=== PATIENT | male | born 1965 | race Caucasian/White ===

== ENCOUNTER 2024-04-26 09:58 | Emergency (ER) | payer BC, SELFPAY ==
[2024-04-26 09:58] VITALS: BP 158/79; PULSE 85; RESP 16; TEMP 36.7; O2SAT 100; BMI 27.8
[2024-04-26 10:00] VITALS: BP 166/82; PULSE 85; O2SAT 100
--- NOTE | 2024-04-26 10:18 | ED_ITS ---
Discharge Plan Disposition Patient Disposition: Home, Self-Care Condition: Good Prescriptions Prescriptions: New acetaminophen 500 mg capsule 1,000 mg PO Q6H PRN (Reason: pain) Qty: 30 0RF ibuprofen 600 mg tablet 600 mg PO Q8H PRN (Reason: pain) Qty: 30 0RF lidocaine 5 % adhesive patch,medicated 1 patch topical DAILY Qty: 15 0RF Rx Instructions: leave on most painful area for up to 12 hrs Referrals Follow up/Referrals: Sin Ferguson APRN [Primary Care Provider] - See instructions Clinical Impressions Clinical Impression: Fall Instructions Patient Instructions: How to Prevent Falls Print Language Print Language: Ukrainian Discharge ED Provider: Julianna Mcgowan General Adult HPI General Chief complaint: Fall Stated complaint: Fall Time Seen by Provider: 04/26/24 10:03 Mode of Arrival: EMS Source of Information: Patient Limitations: No Limitations Description of Symptoms (Recalled from ER Triage Doc. by RN): Patient reports falling down two concrete steps. Complaint of buttocks pain. Denies LOC. History of Present Illness HPI narrative: Patient is a 59-year-old with past medical history significant for type 2 diabetes presents to the emergency department from [facility], [place] due to concern of a fall from 2 steps. Patient complaining most of lower back pain. Patient reports he hit his head did not lose consciousness. Denies taking any medications daily. Patient said he slipped and that is what made him fall denies shortness of breath headache dizziness or lightheadedness prior to the fall. Patient was able to ambulate after the fall. He normally ambulates without difficulty he said when he was walking outside he was attempting to go to the bathroom and urinated on himself. No history of seizures no episode of loss of consciousness and remembers the entire event. Related Data Previous Rx's ?Medication ?Instructions ?Recorded acetaminophen 500 mg capsule 1,000 mg (2 x 500 mg) PO Q6H PRN 04/26/24 pain #30 caps ibuprofen 600 mg tablet 600 mg PO Q8H PRN pain #30 tabs 04/26/24 lidocaine 5 % topical patch 1 patch topical DAILY #15 ea 04/26/24 Allergies Allergy/AdvReac Type Severity Reaction Status Date / Time No Known Allergies Allergy Verified 04/26/24 10:04 [facility] Disclaimer: The information contained in this section may have been updated after the patient was seen, as this information can be updated by other users. Social History Smoking Status: Current every day smoker alcohol intake: never current occupational status: unemployed ROS Obtained: Yes All systems reviewed & no additional complaints except as documented Physical Exam General General appearance: alert and in no apparent distress Comment: Delayed and slowed responses Head Head exam: atraumatic and normocephalic Neck Neck exam: Present full ROM and tenderness (Paraspinal tenderness) Chest Chest inspection: Present normal inspection and tenderness (Right anterior chest without associated bruising) Respiratory Respiratory exam: Present normal lung sounds bilaterally; Absent respiratory distress Cardiovascular Cardiovascular exam: Present regular rate and normal rhythm Abdominal Exam Abdominal exam: Present soft, distention and tenderness (Periumbilical without guarding no associated bruising) Extremities Exam Extremities exam: Present normal inspection, full ROM and tenderness (Right knee without associated edema swelling or bruising) Back Exam Back exam: Present tenderness (Midline tenderness T and L-spine) Neurological Exam Neurological exam: Present alert, oriented X3 and CN II-XII intact; Absent motor sensory deficit Psychiatric Psychiatric exam: Present flat affect and other (Delayed responses) Skin Skin exam: Present warm and dry Medical Decision Making Medical Records Screening: Per USPSTF and CDC recommendations, given the prevalence of disease in our region, it is our hospital?s policy to screen for HIV and viral Hepatitis for all patients aged 18 and over and those with ongoing risk factors. Ramon Inquiry Pt receiving controlled substance: No Vital Signs: 04/26/24 09:58 04/26/24 10:00 04/26/24 10:29 Temperature 98.0 F Temperature Source Oral Pulse Rate 85 82 Pulse Rate [Radial] 85 Respiratory Rate 16 Blood Pressure 166/82 H 144/89 H Blood Pressure [Right Arm] 158/79 H Blood Pressure Mean [Right Arm] 105 Blood Pressure Source Blood Pressure Source [Right Arm] Automatic Cuff Blood Pressure Position [Right Arm] Sitting 02 Sat by Pulse Oximetry 100 100 98 Oxygen Delivery Method Room Air Room Air Room Air 04/26/24 13:00 04/26/24 13:36 Temperature 98.0 F Temperature Source Oral Pulse Rate 78 88 Pulse Rate [Radial] Respiratory Rate 18 Blood Pressure 135/72 146/92 H Blood Pressure [Right Arm] Blood Pressure Mean [Right Arm] Blood Pressure Source Automatic Cuff Blood Pressure Source [Right Arm] Blood Pressure Position [Right Arm] 02 Sat by Pulse Oximetry 100 Oxygen Delivery Method Room Air Room Air Lab Data Lab Results 04/26/24 10:36: WBC 13.5 H, RBC 5.05, Hgb 15.1, Hct 46.0, MCV 91.1, MCH 30.0, MCHC 32.9, RDW 13.3, Plt Count 263, MPV 8.7, Neut % (Auto) 82.9 H, Lymph % (Auto) 10.6, [place] % (Auto) 4.1, Eos % (Auto) 1.6, Baso % (Auto) 0.7, Neut # (Auto) 11.2 H, Lymph # (Auto) 1.4, [place] # (Auto) 0.6, Eos # (Auto) 0.2, Baso # (Auto) 0.1, PT 10.9, INR 0.97, APTT 26.9, Sodium 140, Potassium 4.1, Chloride 104, Carbon Dioxide 29, Anion Gap 11.1, BUN 16, Creatinine 0.90, Estimated Creat Clear 113, Estimated GFR 86, Est GFR ( Amer) 105, Glucose 150 H, Calcium 8.9, Total Bilirubin 0.7, AST 44, ALT 34, Alkaline Phosphatase 101, Total Protein 8.8 H, Albumin 4.5, Globulin 4.3 H, Albumin/Globulin Ratio 1.0 L, Lipase 80, Plasma/Serum Alcohol < 10, HIV 1&2 Antibody Rapid Nonreactive 04/26/24 12:52: Urine Opiates Screen Negative, Urine Methadone Screen Negative, Ur Barbituates Screen Negative, Ur Phencyclidine Scrn Negative, Ur Amphetamines Screen Negative, U Benzodiazepines Scrn Negative, Urine Cocaine Screen Negative, U Marijuana (THC) Screen Negative 04/26/24 10:36 04/26/24 10:36 Orders (Tests/Meds): ED MEDICATIONS Discontinued Medications Generic Name Dose Route Start Last Admin Trade Name Freq PRN Reason Stop Dose Admin Iopamidol 160 ml 04/26/24 12:00 04/26/24 12:01 Iopamidol-370 (76%);100ml Bottle IV 04/26/24 12:01 160 ml ONCE ONE Administration Ketorolac Tromethamine 15 mg 04/26/24 13:33 04/26/24 13:38 Ketorolac 30mg/Ml Vial IV 04/26/24 13:34 15 mg ONCE ONE Administration Sodium Chloride 10 ml 04/26/24 10:23 Sodium Chloride 0.9% 10ml Flush Syringe IV 05/26/24 10:22 NEEDED PRN Maintain IV Site Sodium Chloride 10 ml 04/26/24 12:00 04/26/24 12:01 Sodium Chloride 0.9% 10ml Syr (Rad Only) IV 04/26/24 12:01 10 ml ONCE ONE Administration Sodium Chloride 50 ml 04/26/24 12:00 04/26/24 12:00 0.9 % Sodium Chloride 50 Ml Vial IV 04/26/24 12:01 50 ml ONCE ONE Administration ORDERS Category Date Time Status CT angio abdomen pelvis Stat Cat Scan 04/26/24 10:[address] angio chest - dissection Stat Cat Scan 04/26/24 10:[address] angio head Stat Cat Scan 04/26/24 10:[address] angio neck Stat Cat Scan 04/26/24 10:[address] bony pelvis Stat Cat Scan 04/26/24 10:[address] cervical spine wo con Stat Cat Scan 04/26/24 10:[address] head/brain wo con Stat Cat Scan 04/26/24 10:[address] lumbar spine wo con Stat Cat Scan 04/26/24 10:[address] thoracic spine wo con Stat Cat Scan 04/26/24 10:23 Completed Femur XR right 2 views [XR femur RT 2V] Stat Exams 04/26/24 10:23 Completed Fibula/tibia XR right 2 views [XR tibia fibula RT 2V] Exams 04/26/24 10:23 Completed Stat XR chest portable Stat Exams 04/26/24 10:24 Completed XR knee RT 2V Stat Exams 04/26/24 10:23 Completed XR pelvis 1-2V Stat Exams 04/26/24 10:24 Completed Activated Partial Thrombo Time Stat Lab 04/26/24 10:36 Completed Complete Blood Count Auto Diff Stat Lab 04/26/24 10:36 Completed Comprehensive Metabolic Panel Stat Lab 04/26/24 10:36 Completed Drug Screen,Urine Stat Lab 04/26/24 12:52 Completed Ethyl Alcohol Stat Lab 04/26/24 10:36 Completed HIV (1&2) Antibody Rapid Stat Lab 04/26/24 10:36 Completed Hep C Ab with Reflex to RNA Stat Lab 04/26/24 10:36 Received Lipase Stat Lab 04/26/24 10:36 Completed Prothrombin Time INR Stat Lab 04/26/24 10:36 Completed Medical Decision Narrative: In summary, this 59-year-old female presents to the emergency department today with fall from 2 steps. On initial evaluation patient is hemodynamically stable saturating appropriately on room air afebrile no acute distress. Unknown baseline mental status however patient appears either intoxicated or mentally delayed. Patient covered in urine. differential diagnosis includes but is not limited to intracranial hemorrhage traumatic brain injury spinal fracture intra- abdominal injury including solid organ or hollow viscus injury acute intoxication acute fracture dislocation of extremity. Based on these concerns, I ordered CBC CMP lipase drug screen alcohol level CT head and C-spine without contrast and CT pelvis without contrast, CTA chest abdomen pelvis. Labs personally reviewed demonstrate hemoglobin appropriate. XR personally interpreted demonstrates no pneumo or hemothorax no acute fracture of the right lower extremity., CT imaging personally interpreted demonstrate no acute fracture vertebrae no intra cranial hemorrhage, no hemoperitoneum. I had an interactive discussion with patient's assisted living facility and noted that this is patient's baseline mental status history significant for intellectual disability. On reevaluation patient able to tolerate p.o. and ambulate has improvement of symptoms amenable to discharge with outpatient follow-up. On reassessment patient has improvement of symptoms able to tolerate p.o. workup unremarkable for acute fractures or acute traumatic injuries. Of note, social determinants of health include social barriers affecting quality of life Critical Care Critical Care Time Critical Care Time: No
--- NOTE | 2024-04-26 10:23 | CT_ITS ---
PROCEDURE INFORMATION: Exam: CTA Chest With Contrast Exam date and time: 04/26/2024 12:04 PM Age: 59 years old Clinical indication: Injury or trauma; Additional info: Trauma, critical injury suspected TECHNIQUE: Imaging protocol: Computed tomographic angiography of the chest with contrast. Exam focused on the arteries. 3D rendering (Not supervised by radiologist): MIP and/or 3D reconstructed images were created by the technologist. Radiation optimization: All CT scans at this facility use at least one of these dose optimization techniques: automated exposure control; mA and/or kV adjustment per patient size (includes targeted exams where dose is matched to clinical indication); or iterative reconstruction. Contrast material: ISOVUE 370; Contrast volume: 160 ml; Contrast route: INTRAVENOUS (IV); COMPARISON: CT ANGIO NECK 04/26/2024 11:59 AM FINDINGS: Pulmonary arteries: Normal. No pulmonary emboli. Aorta: Unremarkable. No aortic aneurysm. No aortic dissection. Lungs: There is an old calcified granuloma in the superior segment of the right lower lobe. No acute pulmonary infiltrates. Pleural spaces: Unremarkable. No pneumothorax. No pleural effusion. Heart: Unremarkable. No cardiomegaly. No pericardial effusion. Lymph nodes: Unremarkable. No enlarged lymph nodes. Bones/joints: Unremarkable. No acute fracture. Soft tissues: Unremarkable. IMPRESSION: Unremarkable CT angiogram of the chest.
--- NOTE | 2024-04-26 10:23 | XR_ITS ---
PROCEDURE INFORMATION: Exam: XR Right Femur Exam date and time: 04/26/2024 12:11 PM Age: 59 years old Clinical indication: Injury or trauma; Fall; Blunt trauma; Thigh or upper leg; Right; Additional info: Fall, pain TECHNIQUE: Imaging protocol: Radiologic exam of the right femur. Views: 2 views. COMPARISON: CR Pelvis 04/26/2024 12:09 PM FINDINGS: Bones/joints: There is normal anatomic alignment of the right femur at the hip and knee. There are moderate chronic degenerative changes of the right hip. No evidence of a right femur fracture. There are mild chronic degenerative changes of the right knee. Soft tissues: Unremarkable. IMPRESSION: Chronic degenerative changes of the right hip and knee but no evidence of a right femur fracture.
--- NOTE | 2024-04-26 10:23 | CT_ITS ---
PROCEDURE INFORMATION: Exam: CT Cervical Spine Without Contrast Exam date and time: 04/26/2024 11:48 AM Age: 59 years old Clinical indication: Injury or trauma; Additional info: Trauma, critical injury suspected TECHNIQUE: Imaging protocol: Computed tomography of the cervical spine without contrast. Radiation optimization: All CT scans at this facility use at least one of these dose optimization techniques: automated exposure control; mA and/or kV adjustment per patient size (includes targeted exams where dose is matched to clinical indication); or iterative reconstruction. COMPARISON: CT HEAD/BRAIN WO CON 04/26/2024 11:46 AM FINDINGS: Bones: Vertebral alignment is maintained. There is preservation of vertebral body heights. Facet joints are well aligned. Odontoid process is intact. Atlantoaxial interval is maintained. No acute fracture. No osseous encroachment of the spinal canal. Uncovertebral facet arthropathy contribute to varying degrees of neural foramina narrowing at multiple levels. Anterior flowing osteophytes at all cervical levels. Paranasal sinuses: Scattered mucosal thickening throughout the paranasal sinuses. Auditory system: Nodular soft tissue thickening in bilateral external auditory canals. While nonspecific statistically represent cerumen. Lungs: Lung apices are normal. Soft tissues: Prevertebral and paravertebral soft tissues are unremarkable. IMPRESSION: No acute fracture. No traumatic subluxation.
--- NOTE | 2024-04-26 10:23 | CT_ITS ---
PROCEDURE INFORMATION: Exam: CT Head Without Contrast Exam date and time: 04/26/2024 11:46 AM Age: 59 years old Clinical indication: Injury or trauma; Additional info: Trauma, critical injury suspected TECHNIQUE: Imaging protocol: Computed tomography of the head without contrast. Radiation optimization: All CT scans at this facility use at least one of these dose optimization techniques: automated exposure control; mA and/or kV adjustment per patient size (includes targeted exams where dose is matched to clinical indication); or iterative reconstruction. COMPARISON: No relevant prior studies available. FINDINGS: Brain: There is no evidence of acute intracranial hemorrhage, extra-axial collection or locoregional mass effect. There are scattered hypodensities in the periventricular and subcortical white matter. The appearance is nonspecific, but most likely represents chronic small vessel disease in a person of this age Cerebral ventricles: The ventricles, sulci and cisterns are normal in size and configuration for patient's age. No hydrocephalus or midline structure shift Pituitary gland and sella: Sellar/parasellar structures, craniocervical junction and orbits are unremarkable Paranasal sinuses: Scattered mucosal thickening throughout the paranasal sinuses. Mastoid air cells: Visualized mastoid air cells are well aerated. Bones: No calvarial fracture Soft tissues: Unremarkable. IMPRESSION: No acute intracranial abnormality. No calvarial fracture.
--- NOTE | 2024-04-26 10:23 | CT_ITS ---
PROCEDURE INFORMATION: Exam: CT Thoracic Spine Without Contrast Exam date and time: 04/26/2024 11:50 AM Age: 59 years old Clinical indication: Injury or trauma; Additional info: Trauma, critical injury suspected TECHNIQUE: Imaging protocol: Computed tomography of the thoracic spine without contrast. Radiation optimization: All CT scans at this facility use at least one of these dose optimization techniques: automated exposure control; mA and/or kV adjustment per patient size (includes targeted exams where dose is matched to clinical indication); or iterative reconstruction. COMPARISON: CT THORACIC SPINE WO CON 04/26/2024 11:50 AM FINDINGS: Bones/joints: There is preservation of vertebral alignment and vertebral body heights. Facet joints are aligned. No acute fracture. There is no significant osseous encroachment of the spinal canal or neural foraminal narrowing at any level. Soft tissues: Unremarkable. IMPRESSION: No acute fracture. No traumatic subluxation.
--- NOTE | 2024-04-26 10:23 | CT_ITS ---
PROCEDURE INFORMATION: Exam: CT Lumbar Spine Without Contrast Exam date and time: 04/26/2024 11:53 AM Age: 59 years old Clinical indication: Injury or trauma; Additional info: Trauma, critical injury suspected TECHNIQUE: Imaging protocol: Computed tomography of the lumbar spine without contrast. Radiation optimization: All CT scans at this facility use at least one of these dose optimization techniques: automated exposure control; mA and/or kV adjustment per patient size (includes targeted exams where dose is matched to clinical indication); or iterative reconstruction. COMPARISON: CT THORACIC SPINE WO CON 04/26/2024 11:50 AM FINDINGS: Bones/joints: There is preservation of vertebral alignment and vertebral body heights. Facet joints are aligned. No acute fracture. No significant central spinal canal stenosis or neural foraminal narrowing at any level. Anterior flowing osteophytes noted. Sacroiliac joints are intact. Kidneys and ureters: Bilateral nonobstructive nephrolithiasis. Soft tissues: Unremarkable. IMPRESSION: No acute fracture. No traumatic subluxation.
--- NOTE | 2024-04-26 10:23 | CT_ITS ---
PROCEDURE INFORMATION: Exam: CTA Abdomen and Pelvis With Contrast Exam date and time: 04/26/2024 12:04 PM Age: 59 years old Clinical indication: Injury or trauma; Additional info: Trauma, critical injury suspected TECHNIQUE: Imaging protocol: Computed tomographic angiography of the abdomen and pelvis with contrast. Exam focused on the arteries. 3D rendering (Not supervised by radiologist): MIP and/or 3D reconstructed images were created by the technologist. Radiation optimization: All CT scans at this facility use at least one of these dose optimization techniques: automated exposure control; mA and/or kV adjustment per patient size (includes targeted exams where dose is matched to clinical indication); or iterative reconstruction. Contrast material: ISOVUE 370; Contrast volume: 160 ml; Contrast route: INTRAVENOUS (IV); COMPARISON: CT BONY PELVIS 04/26/2024 11:56 AM FINDINGS: Aorta: No aortic aneurysm. No aortic dissection. Celiac trunk and mesenteric arteries: No occlusion or significant stenosis. Renal arteries: No occlusion or significant stenosis. Right iliac arteries: No occlusion or significant stenosis. Left iliac arteries: No occlusion or significant stenosis. Liver: Hepatic steatosis. No focal liver lesion is identified. Gallbladder and biliary ducts: The gallbladder is unremarkable with no calcified stones visualized and no strandy inflammatory changes surrounding the gallbladder. Pancreas: Unremarkable. No mass. No ductal dilation. Spleen: Unremarkable. No splenomegaly. Adrenal glands: Adreniform thickening of the adrenal glands without a discrete nodule on either side. The findings suggest benign adrenal hyperplasia. Kidneys and ureters: The kidneys are normal in appearance. There is a small simple appearing right renal cortical cyst measuring 2.3 cm. No evidence of hydronephrosis or hydroureter. No nephroureteral calculi are identified. Stomach and bowel: Unremarkable. No obstruction. No mucosal thickening. Appendix: No evidence of appendicitis. Intraperitoneal space: Unremarkable. No free air. No significant fluid collection. Lymph nodes: Unremarkable. No enlarged lymph nodes. Urinary bladder: Unremarkable. No mass. Reproductive: Unremarkable as visualized. Bones/joints: Moderate chronic degenerative changes to both hips. No acute fractures identified. There are multilevel chronic degenerative changes throughout the visualized spine. Soft tissues: Unremarkable. IMPRESSION: No CT evidence of acute intra-abdominal pathology.
--- NOTE | 2024-04-26 10:23 | XR_ITS ---
PROCEDURE INFORMATION: Exam: XR Right Knee Exam date and time: 04/26/2024 12:13 PM Age: 59 years old Clinical indication: Injury or trauma; Fall; Blunt trauma; Knee; Right; Additional info: Fall, pain TECHNIQUE: Imaging protocol: Radiologic exam of the right knee. Views: 1 or 2 views. COMPARISON: CR XR FEMUR RT 2V 04/26/2024 12:11 PM FINDINGS: Bones/joints: There is an old, healed fracture deformity of the right fibular neck and proximal right tibial shaft. There is normal anatomic alignment of the right knee. No acute right knee fracture or joint effusion. Mild chronic degenerative changes of the patellofemoral compartment. Soft tissues: Normal. IMPRESSION: Old healed fracture deformities of the right fibular neck and proximal right tibia shaft but no evidence of an acute right knee abnormality.
--- NOTE | 2024-04-26 10:23 | CT_ITS ---
PROCEDURE INFORMATION: Exam: CTA Head With Contrast, Arteriography Exam date and time: 04/26/2024 11:59 AM Age: 59 years old Clinical indication: Injury or trauma; Additional info: Trauma, critical injury suspected TECHNIQUE: Imaging protocol: Computed tomographic angiography of the head with contrast. Exam focused on the arteries. 3D rendering (Not supervised by radiologist): MIP and/or 3D reconstructed images were created by the technologist. Radiation optimization: All CT scans at this facility use at least one of these dose optimization techniques: automated exposure control; mA and/or kV adjustment per patient size (includes targeted exams where dose is matched to clinical indication); or iterative reconstruction. Contrast material: ISOVUE 370; Contrast volume: 160 ml; Contrast route: INTRAVENOUS (IV); COMPARISON: CT HEAD/BRAIN WO CON 04/26/2024 11:46 AM FINDINGS: ANTERIOR CIRCULATION: Right internal carotid artery: Intracranial segment is patent with no significant stenosis. No aneurysm. Right middle cerebral artery: No occlusion or significant stenosis. No aneurysm. Right anterior cerebral artery: No occlusion or significant stenosis. No aneurysm. Left internal carotid artery: Intracranial segment is patent with no significant stenosis. No aneurysm. Left middle cerebral artery: No occlusion or significant stenosis. No aneurysm. Left anterior cerebral artery: No occlusion or significant stenosis. No aneurysm. POSTERIOR CIRCULATION: Right vertebral artery: No occlusion or significant stenosis. No aneurysm. Left vertebral artery: No occlusion or significant stenosis. No aneurysm. Basilar artery: No occlusion or significant stenosis. No aneurysm. Right posterior cerebral artery: No occlusion or significant stenosis. No aneurysm. Left posterior cerebral artery: No occlusion or significant stenosis. No aneurysm. Brain: No definite mass, mass effect, or midline shift. Cerebral ventricles: No ventriculomegaly. Bones/joints: Unremarkable. No acute fracture. Soft tissues: Unremarkable. IMPRESSION: No large vessel stenosis or occlusion. PROCEDURE INFORMATION: Exam: CTA Neck With Contrast Exam date and time: 04/26/2024 11:59 AM Age: 59 years old Clinical indication: Injury or trauma; Additional info: Trauma, critical injury suspected TECHNIQUE: Imaging protocol: Computed tomographic angiography of the neck with contrast. Exam focused on the cervical segments of the vasculature. 3D rendering (Not supervised by radiologist): MIP and/or 3D reconstructed images were created by the technologist. Radiation optimization: All CT scans at this facility use at least one of these dose optimization techniques: automated exposure control; mA and/or kV adjustment per patient size (includes targeted exams where dose is matched to clinical indication); or iterative reconstruction. COMPARISON: CT ANGIO NECK 04/26/2024 11:59 AM FINDINGS: Right common carotid artery: No stenosis. No dissection or occlusion. Right internal carotid artery: No stenosis of the extracranial segment. No dissection or occlusion. Right external carotid artery: No occlusion or stenosis of the origin. Left common carotid artery: No stenosis. No dissection or occlusion. Left internal carotid artery: No stenosis of the extracranial segment. No dissection or occlusion. Left external carotid artery: No occlusion or stenosis of the origin. Right vertebral artery: No stenosis. No dissection or occlusion. Left vertebral artery: No stenosis. No dissection or occlusion. Soft tissues: Normal. No significant soft tissue swelling. Bones/joints: No acute fracture. IMPRESSION: No stenosis or occlusion. REFERENCES: NASCET CRITERIA. The degree of stenosis in the cervical segment of the internal carotid artery is based on NASCET criteria. Normal is no stenosis. Mild is less than 50% stenosis. Moderate is 50-69% stenosis. Severe is 70% to 99% stenosis. Total occlusion is no detectable patent lumen.
--- NOTE | 2024-04-26 10:23 | XR_ITS ---
PROCEDURE INFORMATION: Exam: XR Right Tibia and Fibula Exam date and time: 04/26/2024 12:13 PM Age: 59 years old Clinical indication: Injury or trauma; Fall; Blunt trauma; Lower leg; Right; Additional info: Fall, pain TECHNIQUE: Imaging protocol: Radiologic exam of the right tibia and fibula. Views: 2 views. COMPARISON: CR Knee R 04/26/2024 12:13 PM FINDINGS: Bones/joints: There is normal anatomic alignment of the right tibia and fibula at the knee and ankle. No acute fractures identified. There are old healed fractures of the proximal right tibia and fibula. Soft tissues: Normal. IMPRESSION: Old healed fractures of the proximal right tibia and fibula but no acute abnormality is identified.
--- NOTE | 2024-04-26 10:24 | CT_ITS ---
PROCEDURE INFORMATION: Exam: CT Pelvis Without Contrast, Skeleton Exam date and time: 04/26/2024 11:56 AM Age: 59 years old Clinical indication: Injury or trauma; Additional info: Trauma, critical injury suspected TECHNIQUE: Imaging protocol: Computed tomography of the pelvis without contrast. Exam focused on the skeleton. Radiation optimization: All CT scans at this facility use at least one of these dose optimization techniques: automated exposure control; mA and/or kV adjustment per patient size (includes targeted exams where dose is matched to clinical indication); or iterative reconstruction. COMPARISON: CT LUMBAR SPINE WO CON 04/26/2024 11:53 AM FINDINGS: Bones/joints: Mild sclerosis along the otherwise intact sacroiliac joints. Femoral heads are well seated in the acetabula. Femoral necks are intact. Trochanteric regions are unremarkable. Pubic rami are maintained. Sacrum and sacrococcygeal junction are intact. No visible fracture or dislocation. Soft tissues: Unremarkable. IMPRESSION: No visible fracture or dislocation.
--- NOTE | 2024-04-26 10:24 | XR_ITS ---
PROCEDURE INFORMATION: Exam: XR Chest Exam date and time: 04/26/2024 12:09 PM Age: 59 years old Clinical indication: Injury or trauma; Fall; Blunt trauma (contusions or hematomas) TECHNIQUE: Imaging protocol: Radiologic exam of the chest. Views: 1 view. COMPARISON: CT ANGIO CHEST 04/26/2024 12:04 PM FINDINGS: Lungs: Unremarkable. No consolidation. Pleural spaces: Unremarkable. No pleural effusion. No pneumothorax. Heart/Mediastinum: Unremarkable. No cardiomegaly. Bones/joints: Unremarkable. IMPRESSION: No acute findings.
--- NOTE | 2024-04-26 10:24 | XR_ITS ---
PROCEDURE INFORMATION: Exam: XR Pelvis Exam date and time: 04/26/2024 12:09 PM Age: 59 years old Clinical indication: Injury or trauma; Fall; Blunt trauma (contusions or hematomas); Right; Pelvic region TECHNIQUE: Imaging protocol: Radiologic exam of the pelvis. Views: 1 or 2 view. COMPARISON: CT ANGIO ABDOMEN PELVIS 04/26/2024 12:04 PM FINDINGS: Bones/joints: Moderate chronic degenerative changes to both hips. No visible hip fracture or pelvic fracture. Sclerotic changes of the sacroiliac joints. Soft tissues: Unremarkable. Organs: IV contrast is seen in the distal ureters and within the urinary bladder. No extravasated contrast is noted. IMPRESSION: Chronic degenerative changes of both hips but no evidence of a hip or pelvic fracture.
[2024-04-26 10:29] VITALS: BP 144/89; PULSE 82; O2SAT 98
[2024-04-26 10:47] LABS: Basophils # 0.1 K/mm3 (0-0.2); Basophils % 0.7 % (0.1-2.0); Eosinophils # 0.2 K/mm3 (0.0-0.4); Eosinophils % 1.6 % (0.1-12.0); Hemoglobin 15.1 g/dL (14.1-18.0); Lymphocytes # 1.4 K/mm3 (0.7-4.5); Lymphocytes % 10.6 % (10-50); Mean Corpuscular HGB Conc 32.9 g/dL (31.8-35.4); Mean Corpuscular Volume 91.1 fl (80-94); Mean Platelet Volume 8.7 fl (7.4-10.4); Monocytes # 0.6 K/mm3 (0.1-1.0); Monocytes % 4.1 % (1.7-9.3); Neutrophils # 11.2 K/mm3 (1.8-7.8); Neutrophils % 82.9 % (37.0-80.0); Platelet Count 263 K/mm3 (142-424); Red Blood Count 5.05 M/mm3 (4.60-6.20); Red Cell Distribution Width 13.3 % (11.5-17.5); White Blood Count 13.5 K/mm3 (4.8-10.8)
[2024-04-26 10:59] LABS: Albumin Level 4.5 g/dl (3.5-5.0); Chloride 104 mmol/L (98-107); Potassium 4.1 mmoL/L (3.5-5.1); Sodium 140 mmol/L (136-145)
[2024-04-26 11:02] LABS: Activated Partial Thrombo Time 26.9 seconds (22.8-30.6); Alanine Aminotransferase 34 U/L (12-78); Alkaline Phosphatase 101 U/L (38-126); Anion Gap 11.1 mEq/L (5-15); Aspartate Amino Transferase 44 U/L (17-59); Bilirubin,Total 0.7 mg/dl (0.2-1.3); Blood Urea Nitrogen 16 mg/dl (9-20); Carbon Dioxide 29 mmol/L (22.0-30.0); Creatinine Clearance Estimated 113 mL/min (50-200); Estimated Glomerular Filt Rate 86 ml/min (>60); GFR (African American) 105 ML/MIN (>60); Globulin 4.3 g/dL (1.3-3.2); INR 0.97 (0.9-1.1); Prothrombin Time 10.9 seconds (10.1-12.5); Total Protein,Serum 8.8 g/dl (6.3-8.2)
[2024-04-26 11:03] LABS: Calcium 8.9 mg/dl (8.4-10.2); Glucose 150 mg/dl (74-100)
[2024-04-26 11:10] LABS: Lipase 80 U/L (23-300)
[2024-04-26 11:12] LABS: Ethyl Alcohol < 10 mg/dl (0-10)
[2024-04-26 11:41] LABS: HIV (1&2) Antibody Rapid NONREACTIVE (NONREACTIVE)
[2024-04-26] MEDS: 0.9 % SODIUM CHLORIDE 50 ML VIAL IV (12:00)
[2024-04-26] MEDS: IOPAMIDOL-370 (76%);100ML BOTTLE 160 ML IV (12:01)
[2024-04-26] MEDS: SODIUM CHLORIDE 0.9% 10ML SYR (RAD ONLY) 10 ML IV (12:01)
[2024-04-26 13:00] VITALS: BP 135/72; PULSE 78; O2SAT 100
[2024-04-26 13:08] LABS: Benzodiazepines Screen,Urine Negative ng/ml (<200)
[2024-04-26 13:09] LABS: Amphetamine/Metha Screen,Urine Negative ng/ml (<1000); Barbiturates Screen,Urine Negative ng/ml (<200)
[2024-04-26 13:10] LABS: Methadone Screen,Urine Negative ng/ml (<300)
[2024-04-26 13:11] LABS: Cannabinoid Screen,Urine Negative ng/ml (<50); Cocaine Screen,Urine Negative ng/ml (<300)
[2024-04-26 13:12] LABS: Opiate Screen,Urine Negative ng/ml (<300)
[2024-04-26 13:13] LABS: Phencyclidine Screen,Urine Negative ng/ml (<25)
[2024-04-26 13:36] VITALS: BP 146/92; PULSE 88; RESP 18; TEMP 36.7; O2SAT 98
[2024-04-26] MEDS: KETOROLAC 30MG/ML VIAL 15 MG IV (13:38)
[2024-04-27 08:12] LABS: HCV Ab Non Reactive (Non Reactive)
== END 2024-04-26 13:50 | disposition home or self-care (01) ==
PROVIDERS: Emergency Provider Student in an Organized Health Care Education/Training Program; PCP Nurse Practitioner Acute Care
DX: M54.50 Low back pain, unspecified (principal); R10.31 Right lower quadrant pain; W10.8XXA Fall (on) (from) other stairs and steps, initial encounter; Y93.89 Activity, other specified; Y92.89 Other specified places as the place of occurrence of the external cause
CPT/HCPCS: 70450; 70496; 70498; 71045; 71275; 72125; 72128; 72131; 72170; 72192; 73552; 73560; 73590; 74174; 80053; 80307; 80320; 83690; 85025; 85610; 85730; 86803; 87389; 96374; 99285; G0480; J1885; Q9967

== ENCOUNTER 2024-06-17 14:48 | Emergency (ER) | payer OTHER, SELFPAY ==
[2024-06-17 14:48] VITALS: BP 159/80; PULSE 89; RESP 16; TEMP 36.7; O2SAT 98; BMI 31.1
--- NOTE | 2024-06-17 14:58 | XR_ITS ---
PROCEDURE INFORMATION: Exam: XR Right Hip Exam date and time: 06/17/2024 3:15 PM Age: 59 years old Clinical indication: Hip pain; Right hip; Additional info: Pain for months, worse now TECHNIQUE: Imaging protocol: Radiologic exam of the right hip. Views: 2 or 3 views hip with pelvis when performed. COMPARISON: CR XR HIP RT 2-3V W/PELVIS 06/17/2024 3:15 PM FINDINGS: Bones/joints: There are mild degenerative changes of both hip joints with some joint space narrowing and subchondral sclerosis. There are prominent bony excrescences arising from the lateral aspects of both acetabular roofs in both iliac crests suggestive of proliferative enthesopathy such as DISH or ankylosing spondylitis. No fracture underlying bone lesion detected. Soft tissues: Unremarkable. IMPRESSION: 1. Mild degenerative changes both hip joints. No acute bony abnormalities. 2. Prominent bony excrescences involving the pelvis that may be secondary to superimposed DISH or ankylosing spondylitis.
--- NOTE | 2024-06-17 14:58 | XR_ITS ---
PROCEDURE INFORMATION: Exam: XR Right Knee Exam date and time: 06/17/2024 3:18 PM Age: 59 years old Clinical indication: Pain; Knee; Right; Additional info: Pain for months, worse now TECHNIQUE: Imaging protocol: Radiologic exam of the right knee. Views: 3 views. COMPARISON: CR XR KNEE RT 2V 04/26/2024 12:13 PM FINDINGS: Bones/joints: Mild degenerative changes of the medial and lateral knee compartments redemonstrated. No evidence of fracture, malalignment or underlying osseous lesion. No significant interval changes. Soft tissues: Unremarkable. IMPRESSION: Stable exam. No acute bony abnormalities.
--- NOTE | 2024-06-17 14:58 | XR_ITS ---
PROCEDURE INFORMATION: Exam: XR Right Femur Exam date and time: 06/17/2024 3:17 PM Age: 59 years old Clinical indication: Pain; Thigh; Right; Additional info: Pain for months, worse now TECHNIQUE: Imaging protocol: Radiologic exam of the right femur. Views: 2 views. COMPARISON: CR XR FEMUR RT 2V 06/17/2024 3:17 PM FINDINGS: Bones/joints: Unremarkable. No fracture, malalignment or deformity detected. No significant degenerative joint changes. Soft tissues: Unremarkable. IMPRESSION: Normal exam.
[2024-06-17] MEDS: ACETAMINOPHEN 500MG TAB 1000 MG PO (15:02)
--- NOTE | 2024-06-17 15:30 | HMH.EDGENADL ---
Discharge Plan Disposition Patient Disposition: Home, Self-Care Chief Complaint: PAIN Prescriptions Prescriptions: No Action acetaminophen 500 mg capsule 1,000 mg PO Q6H PRN (Reason: pain) Qty: 30 0RF ibuprofen 600 mg tablet 600 mg PO Q8H PRN (Reason: pain) Qty: 30 0RF lidocaine 5 % adhesive patch,medicated 1 patch topical DAILY Qty: 15 0RF Rx Instructions: leave on most painful area for up to 12 hrs Referrals Follow up/Referrals: Sin Ferguson APRN [Primary Care Provider] - See instructions Activity Restrictions/Add. Instructions Additional Instructions/Restrictions: follow up with your family doctor within one week take Tylenol 1000 mg every 6 hours (4 times daily) and ibuprofen 400 mg every 6 hours (4 times daily) as needed with food and water to prevent GI upset and kidney damage. Clinical Impressions Clinical Impression: Chronic left hip pain Instructions Patient Instructions: DI for Chronic Pain -- Adult, DI for Hip Pain Print Language Print Language: Portuguese Discharge ED Provider: Iris Ray General Adult HPI <Iris Ray DO - Last Filed: 06/17/24 15:51> General Chief complaint: PAIN Stated complaint: pain Time Seen by Provider: 06/17/24 14:51 Mode of Arrival: EMS Source of Information: Patient Limitations: No Limitations Description of Symptoms (Recalled from ER Triage Doc. by RN): Patient reports falling approx 2-3 weeks ago and was checked out here for that fall. States his right hip seems to be getting worse and hurts more in the mornings and when he tries to get up after sitting for awhile. History of Present Illness HPI narrative: This patient is a 59-year-old male presenting from [facility] with concerns for left hip pain for several months. He states that has been bothering him ever since he fell. He is evaluated here 04/26/2024 after mechanical fall from [address] scans of his pelvis and negative imaging of his extremity at that time. He notes that it has been hurting since then. No recent falls. He states it is not worse. He is able to bear weight. He says symptoms are worse in the mornings and when he is been sitting for a while. Related Data Previous Rx's ?Medication ?Instructions ?Recorded acetaminophen 500 mg capsule 1,000 mg (2 x 500 mg) PO Q6H PRN 04/26/24 pain #30 caps ibuprofen 600 mg tablet 600 mg PO Q8H PRN pain #30 tabs 04/26/24 lidocaine 5 % topical patch 1 patch topical DAILY #15 ea 04/26/24 Allergies Allergy/AdvReac Type Severity Reaction Status Date / Time No Known Allergies Allergy Verified 04/26/24 10:04 [facility] <Iris Ray DO - Last Filed: 06/17/24 15:51> [facility] Disclaimer: The information contained in this section may have been updated after the patient was seen, as this information can be updated by other users. Social History (Updated 06/17/24 @ 15:51 by Iris Ray DO) Smoking Status: Current every day smoker alcohol intake: never current occupational status: unemployed Travel in the last 8 weeks: None Have you lived/traveled outside [place] in past 30 days?: No Contact w/someone who lives/traveled outside US past 30 days?: No Exposure to someone with infectious disease in past 14 days?: No Do you have a fever (greater than 100.4 F or 38 C)?: No Have you tested positive for COVID-19: No Exposed to someone with COVID-19 in past 14 days?: No Do you have a sore throat?: No Do you have a cough?: No Do you have any weakness?: No Do you have any diarrhea?: No Are you experiencing any unusual bleeding?: No Do you have any muscle aches/pain?: No Do you have any abdominal pain?: No Are you experiencing loss of taste or smell?: No <Iris Ray DO - Last Filed: 06/17/24 15:51> ROS Obtained: Yes All systems reviewed & no additional complaints except as documented Physical Exam <Iris Ray DO - Last Filed: 06/17/24 15:51> General General appearance: alert and in no apparent distress Head Head exam: atraumatic and normocephalic Eye Eye exam: Present normal appearance, PERRL and EOMI ENT ENT exam: Present normal exam, normal oropharynx, mucous membranes moist and normal external ear exam Neck Neck exam: Present normal inspection, full ROM and trachea midline; Absent tenderness Chest Chest inspection: Present normal inspection and symmetric chest wall rise; Absent tenderness Respiratory Respiratory exam: Present normal lung sounds bilaterally; Absent respiratory distress, wheezes, stridor or accessory muscle use Cardiovascular Cardiovascular exam: Present regular rate and normal rhythm Abdominal Exam Abdominal exam: Present soft; Absent distention, tenderness or guarding Extremities Exam Extremities exam: Present full ROM, tenderness (Tender to palpation of the left hip), normal capillary refill and other (All compartment soft, neurovascularly intact distally with no significant lower extremity swelling. Ambulatory.); Absent edema Back Exam Back exam: Present normal inspection and full ROM; Absent tenderness Neurological Exam Neurological exam: Present alert, oriented X3, CN II-XII intact and normal gait; Absent motor sensory deficit Psychiatric Psychiatric exam: Present flat affect Skin Skin exam: Present warm and dry Medical Decision Making <Iris Ray, DO - Last Filed: 06/17/24 15:51> Medical Records Medical records reviewed: Yes I reviewed the patient's medical records. Screening: Per USPSTF and CDC recommendations, given the prevalence of disease in our region, it is our hospital?s policy to screen for HIV and viral Hepatitis for all patients aged 18 and over and those with ongoing risk factors. Ramon Inquiry Pt receiving controlled substance: No Vital Signs: 06/17/24 14:48 Temperature 98.0 F Temperature Source Oral Pulse Rate [Radial] 89 Respiratory Rate 16 Blood Pressure [Left Arm] 159/80 H Blood Pressure Mean [Left Arm] 106 Blood Pressure Source [Left Arm] Automatic Cuff Blood Pressure Position [Left Arm] Sitting 02 Sat by Pulse Oximetry 98 Oxygen Delivery Method Room Air Lab Data Lab results reviewed: Yes I reviewed the patient's lab results. Orders (Tests/Meds): ED MEDICATIONS Discontinued Medications Generic Name Dose Route Start Last Admin Trade Name Mode PRN Reason Stop Dose Admin Acetaminophen 1,000 mg 06/17/24 14:59 06/17/24 15:02 Acetaminophen 500mg Tab PO 06/17/24 15:00 1,000 mg ONCE ONE Administration ORDERS Category Date Time Status Femur XR left 2 views [XR femur LT 2V] Stat Exams 06/17/24 15:43 Completed Femur XR right 2 views [XR femur RT 2V] Stat Exams 06/17/24 14:58 Completed Hip XR right minimum 2 views [XR hip RT 2-3V w/pelvis] Exams 06/17/24 14:58 Completed Stat Knee XR left 3 views [XR knee LT 3V] Stat Exams 06/17/24 15:43 Completed Knee XR right 3 views [XR knee RT 3V] Stat Exams 06/17/24 14:58 Completed Medical Decision Narrative: In summary, this patient is a 59-year-old male presenting to the Emergency Department for evaluation of left hip pain for months after a mechanical fall on 04/26/2024. He had negative workup at that time. Differential diagnoses considered include but are not limited to arthritis, fracture, contusion, musculoskeletal strain/sprain. Ruling out the most morbid conditions drove assessment. I reviewed patient's past medical records and noted evaluation here and negative CTs 04/26/2024 as detailed in HPI. On exam, the patient is sitting upright in no acute distress. He has tenderness to palpation over the lateral left hip but otherwise no focal findings. He has intact range of motion, is weightbearing, and has no significant lower extremity swelling. He is neurovascularly intact. Workup included of the pelvis, left hip, left femur, left knee. He was given oral Tylenol. Unfortunately, initial x-rays were accidentally ordered of the right lower extremity as opposed to left. I did interpret these prior to radiology read and noted no acute fracture of the right lower extremity. Please see radiology reads for final interpretation. Patient care signed to the oncoming provider, Dr. Newby, pending XR of the left lower extremity. <Anthony Newby MD - Last Filed: 06/17/24 17:16> Vital Signs: 06/17/24 14:48 Temperature 98.0 F Temperature Source Oral Pulse Rate [Radial] 89 Respiratory Rate 16 Blood Pressure [Left Arm] 159/80 H Blood Pressure Mean [Left Arm] 106 Blood Pressure Source [Left Arm] Automatic Cuff Blood Pressure Position [Left Arm] Sitting 02 Sat by Pulse Oximetry 98 Oxygen Delivery Method Room Air Orders (Tests/Meds): ED MEDICATIONS Discontinued Medications Generic Name Dose Route Start Last Admin Trade Name Freq PRN Reason Stop Dose Admin Acetaminophen 1,000 mg 06/17/24 14:59 06/17/24 15:02 Acetaminophen 500mg Tab PO 06/17/24 15:00 1,000 mg ONCE ONE Administration ORDERS Category Date Time Status Femur XR left 2 views [XR femur LT 2V] Stat Exams 06/17/24 15:43 Completed Femur XR right 2 views [XR femur RT 2V] Stat Exams 06/17/24 14:58 Completed Hip XR right minimum 2 views [XR hip RT 2-3V w/pelvis] Exams 06/17/24 14:58 Completed Stat Knee XR left 3 views [XR knee LT 3V] Stat Exams 06/17/24 15:43 Completed Knee XR right 3 views [XR knee RT 3V] Stat Exams 06/17/24 14:58 Completed Medical Decision Narrative: In summary, this patient is a 59-year-old male presenting to the Emergency Department for evaluation of left hip pain for months after a mechanical fall on 04/26/2024. He had negative workup at that time. Differential diagnoses considered include but are not limited to arthritis, fracture, contusion, musculoskeletal strain/sprain. Ruling out the most morbid conditions drove assessment. I reviewed patient's past medical records and noted evaluation here and negative CTs 04/26/2024 as detailed in HPI. On exam, the patient is sitting upright in no acute distress. He has tenderness to palpation over the lateral left hip but otherwise no focal findings. He has intact range of motion, is weightbearing, and has no significant lower extremity swelling. He is neurovascularly intact. Workup included of the pelvis, left hip, left femur, left knee. He was given oral Tylenol. Unfortunately, initial x-rays were accidentally ordered of the right lower extremity as opposed to left. I did interpret these prior to radiology read and noted no acute fracture of the right lower extremity. Please see radiology reads for final interpretation. Patient care signed to the oncoming provider, Dr. Newby, pending XR of the left lower extremity. Odin: I assumed primary responsibility for this patient after signout from previous physician. X-rays of imaged extremities negative. Because patient at baseline without signs or symptoms of clinical decompensation, deemed appropriate for discharge. Results were relayed to patient who voiced understanding and were agreeable to outpatient management and follow up. I discussed my clinical impression with patient and answered all questions. At this time, the evidence for any other entities in the differential is insufficient to warrant any further testing or ED observation. This was explained as well. Advisory was given that persistent or worsening symptoms require further evaluation. I confirmed the understanding of this discussion. Critical Care <Iris Ray, DO - Last Filed: 06/17/24 15:51> Critical Care Time Critical Care Time: No
--- NOTE | 2024-06-17 15:43 | XR_ITS ---
PROCEDURE INFORMATION: Exam: XR Left Knee Exam date and time: 06/17/2024 3:41 PM Age: 59 years old Clinical indication: Pain; Knee; Left; Additional info: Pain, fall >1 month ago TECHNIQUE: Imaging protocol: Radiologic exam of the left knee. Views: 3 views. COMPARISON: CR Femur L 06/17/2024 3:40 PM FINDINGS: Bones/joints: There are mild degenerative changes involving the medial knee compartment with some joint space narrowing and subchondral sclerosis. Remainder of the joint surfaces are preserved. No fracture or malalignment. Soft tissue: No significant joint effusion. IMPRESSION: Mild degenerative changes medial knee compartment. No acute abnormalities.
--- NOTE | 2024-06-17 15:43 | XR_ITS ---
PROCEDURE INFORMATION: Exam: XR Left Femur Exam date and time: 06/17/2024 3:40 PM Age: 59 years old Clinical indication: Pain; Thigh; Left; Additional info: Pain, fall >1 month ago TECHNIQUE: Imaging protocol: Radiologic exam of the left femur. Views: 2 views. COMPARISON: CR XR PELVIS 1-2V 04/26/2024 12:09 PM FINDINGS: Bones/joints: Mild degenerative changes left hip joint with prominent hypertrophic bony processes arising from the acetabular roof redemonstrated. Remainder of the left femur is unremarkable. No fracture, deformity underlying bone lesion. Soft tissues: Unremarkable. IMPRESSION: Degenerative and hypertrophic bone changes left hip joint. No acute bony abnormalities.
[2024-06-17 17:13] VITALS: BP 140/85; PULSE 85; RESP 16; TEMP 36.8; O2SAT 99
--- NOTE | 2024-06-17 17:23 | PC.NURSE ---
called willam for ride
== END 2024-06-17 17:37 | disposition home or self-care (01) ==
PROVIDERS: Emergency Provider Emergency Medicine; PCP Nurse Practitioner Acute Care
DX: M25.552 Pain in left hip (principal); G89.29 Other chronic pain; M25.561 Pain in right knee; M25.562 Pain in left knee; M25.551 Pain in right hip; M79.604 Pain in right leg; M79.605 Pain in left leg
CPT/HCPCS: 73502; 73552; 73562; 99283

== ENCOUNTER 2024-06-20 14:27 | Observation (INO) | payer OTHER, SELFPAY ==
[2024-06-20 14:30] VITALS: BP 176/92; PULSE 85; RESP 18; TEMP 37.2; O2SAT 98; BMI 25.8
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
--- NOTE | 2024-06-20 14:36 | CT_ITS ---
FINAL REPORT TECHNIQUE: Multiple axial CT images were performed from the foramen magnum to the vertex without enhancement. Reconstructed images were obtained and reviewed. This study was performed with techniques to keep radiation doses as low as reasonably achievable, (ALARA). Individualized dose reduction techniques using automated exposure control or adjustment of mA and/or kV according to the patient's size were employed. CLINICAL HISTORY: Fall COMPARISON: 04/26/2024 FINDINGS: The ventricles are enlarged. There is diffuse atrophy. There is periventricular white matter change likely related to small vessel disease. There is no evidence of hemorrhage. No masses are identified. No extra-axial fluid is seen. There is dense vascular calcification in the interhemispheric falx. There is moderate mucoperiosteal thickness in both maxillary sinuses and in the sphenoid sinus consistent with chronic sinusitis. The previously noted air-fluid level in the right maxillary sinus is less evident. The mucoperiosteal thickening in the left maxillary sinus and sphenoid sinus is new. IMPRESSION: Atrophy and chronic changes without acute process. Reviewed, Interpreted and Dictated by Eliu Felipe MD Transcribed by Mckenzie Hall Authenticated and [facility]
--- NOTE | 2024-06-20 14:37 | CT_ITS ---
FINAL REPORT TECHNIQUE: Axial images were obtained of the cervical spine by computed tomography. Coronal and sagittal reconstruction process performed. This study was performed with techniques to keep radiation doses as low as reasonably achievable (ALARA). Individualized dose reduction techniques using automated exposure control or adjustment of mA and/or kV according to the patient''s size were employed. 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 The disc spaces are preserved. The facets are properly aligned. There is mild endplate hypertrophy at C5-6 with mild spinal and bilateral neuroforaminal compromise. IMPRESSION: Degenerative changes without acute fracture. Reviewed, Interpreted and Dictated by Eliu Felipe MD Transcribed by Mckenzie Hall Authenticated and . [facility]
--- NOTE | 2024-06-20 14:37 | CT_ITS ---
FINAL REPORT TECHNIQUE: Axial images were obtained of the lumbar spine by computed tomography. Coronal and sagittal reconstruction process performed. This study was performed with techniques to keep radiation doses as low as reasonably achievable (ALARA). Individualized dose reduction techniques using automated exposure control or adjustment of mA and/or kV according to the patient''s size were employed. CLINICAL HISTORY: trauma, critical injury suspected COMPARISON: 04/26/2024 FINDINGS: There is ossification of the anterior longitudinal ligament. The disc spaces are preserved. There is mild vacuum disc phenomenon at L5-S1. The facets are properly aligned. L1-2: No significant disc bulge or protrusion. L2-3: Mild diffuse disc bulge with mild bilateral neuroforaminal narrowing. L3-4: Mild diffuse disc bulge with mild bilateral neuroforaminal narrowing. L4-5: Mild diffuse disc bulge with mild bilateral neuroforaminal narrowing. L5-S1: Mild to moderate diffuse disc bulge with bilateral facet hypertrophy. There is mild bilateral neuroforaminal narrowing. Incidental note is made of partially visualized staghorn calculi bilaterally measuring up to 3.2 cm on the left. IMPRESSION: Multilevel degenerative changes without acute process. Reviewed, Interpreted and Dictated by Eliu Felipe MD Transcribed by Mckenzie Hall Authenticated and . [facility]
--- NOTE | 2024-06-20 14:37 | CT_ITS ---
FINAL REPORT TECHNIQUE: Axial images were obtained of the thoracic spine by computed tomography. Coronal and sagittal reconstruction process performed. This study was performed with techniques to keep radiation doses as low as reasonably achievable (ALARA). Individualized dose reduction techniques using automated exposure control or adjustment of mA and/or kV according to the patient's size were employed. CLINICAL HISTORY: trauma, critical injury suspected COMPARISON: 04/26/2024 FINDINGS: There is ossific patient of the anterior longitudinal ligament. The disc spaces are preserved. The vertebral body demonstrate normal height. There is no malalignment. The neuroforamina are adequately patent. Incidental note is made of a 4 mm noncalcified nodule in the periphery of the right lower lobe, similar to previous. IMPRESSION: No acute fracture. Noncalcified right lower lobe nodule. Recommend follow-up in 1 year as per Fleischner's criteria Reviewed, Interpreted and Dictated by Eliu Felipe MD Transcribed by Mckenzie Hall Authenticated and [facility]
--- NOTE | 2024-06-20 14:38 | CT_ITS ---
FINAL REPORT TECHNIQUE: Axial images through the pelvis were performed by computed tomography. Reconstructed images were obtained and reviewed. This study was performed with techniques to keep radiation doses as low as reasonably achievable, (ALARA). Individualized dose reduction techniques using automated exposure control or adjustment of mA and/or kV according to the patient's size were employed. CLINICAL HISTORY: trauma, critical injury suspected COMPARISON: 04/26/2024 FINDINGS: There is advanced hip joint space narrowing. The femoral heads demonstrate normal smooth contour. There is prominent osteophyte formation at the acetabular margin. There is a well-corticated ossific density at the acetabular margin measuring up to 10 mm, probably due to loose bodies or ununited os acetabuli. No acute fracture is identified. The sacrum and coccyx appear intact. IMPRESSION: No acute finding. Reviewed, Interpreted and Dictated by Eliu Felipe MD Transcribed by Mckenzie Hall Authenticated and [facility]
[2024-06-20 14:54] LABS: Microscopic, Urine URINE MICROSCOPIC (MICROSCOPIC)
[2024-06-20 14:55] LABS: Appearance,Urine CLEAR (Clear); Bilirubin,Urine Negative (Negative); Blood, Urine 2+ (Negative); Color,Urine YELLOW (Yellow); Glucose,Urine (UA) Negative (Negative); Ketones,Urine Negative (Negative); Leukocyte Esterase,Urine 3+ (Negative); Nitrate,Urine Negative (Negative); PH,Urine 6.5 (5.0-8.5); Protein,Urine TRACE (Negative); Urobilinogen,Urine 0.2 EU/dl (0.2)
--- NOTE | 2024-06-20 14:59 | SW/DCPLANNER ---
I received a phone call from patient's State Guardian (Kelley Sawant [phone]) regarding the need for a higher level of care for this patient. Patient currently resides at [facility] but has recently been moved to [facility] due to issues per Kelley. Kelley stated that patient had a fall on 03/2024 and has been declining. I did explain to Kelley that depending on ED workup and physical capabilities of patient he may not require of admission to [facility]. If patient does not require admission [facility] staff would work on placement. If patient does meet criteria for hospital admission then I will continue to follow up.
[2024-06-20 15:11] LABS: Basophils % 0.3 % (0.1-2.0); Eosinophils # 0.2 K/mm3 (0.0-0.4); Eosinophils % 1.9 % (0.1-12.0); Hematocrit 38.4 % (42.0-52.0); Hemoglobin 12.5 g/dL (14.1-18.0); Lymphocytes # 1.2 K/mm3 (0.7-4.5); Lymphocytes % 13.8 % (10-50); Mean Corpuscular HGB Conc 32.6 g/dL (31.8-35.4); Mean Corpuscular Hemoglobin 29.3 pg (27.0-31.2); Mean Corpuscular Volume 90.1 fl (80-94); Mean Platelet Volume 10.9 fl (7.4-10.4); Monocytes # 0.6 K/mm3 (0.1-1.0); Monocytes % 6.9 % (1.7-9.3); Neutrophils # 6.8 K/mm3 (1.8-7.8); Neutrophils % 76.8 % (37.0-80.0); Platelet Count 201 K/mm3 (142-424); Red Blood Count 4.26 M/mm3 (4.60-6.20); Red Cell Distribution Width 13.2 % (11.5-17.5); White Blood Count 8.8 K/mm3 (4.8-10.8)
[2024-06-20 15:13] LABS: WBC,Urine TNTC #/hpf (0-3)
[2024-06-20 15:13] LABS: Albumin Level 4.1 g/dl (3.5-5.0); Chloride 106 mmol/L (98-107); Potassium 4.1 mmoL/L (3.5-5.1); Sodium 141 mmol/L (136-145)
[2024-06-20] MEDS: KETOROLAC 30MG/ML VIAL 15 MG IV (15:14)
[2024-06-20] MEDS: ACETAMINOPHEN 1,000MG/100ML VIAL 1000 MG IV (15:14)
[2024-06-20 15:15] LABS: Bacteria,Urine 2+ /lpf
[2024-06-20 15:15] LABS: Blood Urea Nitrogen 17 mg/dl (9-20); Creatinine Clearance Estimated 102 mL/min (50-200); Estimated Glomerular Filt Rate 99 ml/min (>60); GFR (African American) 120 ML/MIN (>60)
[2024-06-20 15:16] LABS: Alanine Aminotransferase 32 U/L (12-78); Albumin/Globulin Ratio 1.1 (1.1-1.8); Alkaline Phosphatase 75 U/L (38-126); Anion Gap 14.1 mEq/L (5-15); Aspartate Amino Transferase 42 U/L (17-59); Bilirubin,Total 0.4 mg/dl (0.2-1.3); Calcium 8.6 mg/dl (8.4-10.2); Carbon Dioxide 25 mmol/L (22.0-30.0); Globulin 3.7 g/dL (1.3-3.2); Glucose 141 mg/dl (74-100); Total Protein,Serum 7.8 g/dl (6.3-8.2)
[2024-06-20] MEDS: ONDANSETRON 4MG/2ML VIAL 4 MG IV (15:16)
[2024-06-20 15:17] LABS: INR 0.94 (0.9-1.1); Prothrombin Time 10.5 seconds (9.2-12.1)
--- NOTE | 2024-06-20 15:21 | PC.NURSE ---
1457 pt observed to have 3 beat run of v-tach on monitor. Pt was lying still in bed at the time, denies any symptoms. Sidney RAMSEY notified.
--- NOTE | 2024-06-20 15:43 | PC.NURSE ---
PT ARRIVED BACK TO ROOM FROM CT
[2024-06-20 16:00] VITALS: BP 151/85; PULSE 85; RESP 19; O2SAT 98
[2024-06-20] MEDS: SULFA/TRIMETHOPRIM 1 TABLET 1 EACH PO (16:41)
--- NOTE | 2024-06-20 16:53 | PC.NURSE ---
call made to [facility]. staff report they are unable to come get pt at this time due to serving dinner. staff asked that nursing call back around 1730. asked staff to provide pt with ride back to facility after they are finished serving supper.
--- NOTE | 2024-06-20 17:42 | PC.NURSE ---
call made to [facility] for pt transport back to facility. no answer on first call [phone] immediate call back [phone] vince answered phone and asked that I call back in 5 minutes to speak to nursing staff to get pt a ride back.
--- NOTE | 2024-06-20 18:14 | PC.NURSE ---
MULTIPLE ATTEMPTS TO HAVE PT PICKED UP AND RETURNED TO PERSONAL S[facility]IOR [facility]ARE, [facility]. KEITH STOKES, CUPOLA OPERATOR INSULATION OF [facility] AND [facility] STATES PT CANNOT RETURN TO [facility]. [facility] IS CURRENTLY CLOSED, THERE IS NOT HEAT. KEITH STOKES ALSO REPORTS PT NEEDS HIGHER LEVEL OF CARE PER GUARDIANSHIP AND MIRI ISAAC, MEDICAL PROVIDER. INFORMED CUPOLA OPERATOR INSULATION THAT PT HAS BEEN ABLE TO CARE FOR HIMSELF, AMBULATE AND VOID PER BATHROOM WITHOUT ASSISTANCE. KEITH ALSO REPORTS THERE ARE NO BEDS AVAILABLE AT [facility]. FIELD RADIO OPERATOR NOTIFIED OF SITUATION. KEITH STOKES WILL NOT TAKE PT BACK
--- NOTE | 2024-06-20 19:44 | CARE MANAGER ---
Received call from laborer beam house regarding this patient being stable and discharged from ER, but [facility] would not come pick patient up. Spoke with Debbi Townsend, who states that the patient's guardian, Kelley Marin, directed them to send the patient to the hospital to be admitted and they would not be able to take him back due to needing a higher level of care. Explained to Debbi the patient was ambulating, feeding himself, and oriented and there was no reason per MD to admit patient to the hospital. She states they are unable to take him back per guardian and PCP. Spoke with Rahel Moy, she states there were three or four patients that still needed a place to go this morning since [facility] has been shut down. This patient was one of them. They state the patient had recently fallen and has become incontinent at times. Patient was diagnosed with an UTI in the ER. Contacted fiberglass insulation installer guardianship and spoke with Ivelisse, regional economist. She states that it was assumed since they had a PCP order for higher level of care patient would need higher level of care and therefore would be admitted to the hospital. The patient was having issues getting up on his own at the facility. Once evaluated in the ER, the nurse and laborer beam house told me the patient was ambulating and able to feed himself. Ivelisse is reaching out to her director. Cristy Hyde called and stated prior to going to the hospital the patient was going to go to the [facility] in [place]. Ivelisse with guardianship called back and stated her director was reaching out to Debbi Townsend to tell them the patient will need to come to [facility] tomorrow as he is not longterm appropriate. The hospitalist group is admitting overnight and the patient can be discharged tomorrow to [facility]. APS report made regarding situation. ID #[id number]
--- NOTE | 2024-06-20 20:40 | PC.NURSE ---
report called to Radha CARMONA.
[2024-06-20 20:44] VITALS: BP 143/89; PULSE 71; RESP 16; TEMP 36.8; O2SAT 98
--- NOTE | 2024-06-20 20:52 | PC.NURSE ---
Patient arrived to[facility] via wheelchair from ED at 20:49.
[2024-06-20 20:54] VITALS: BP 126/92; PULSE 74; RESP 20; TEMP 36.6; O2SAT 99
[2024-06-20] MEDS: LEVOFLOXACIN/D5W 750 MG/150 ML 750 MG/150 ML PIGGYBACK 100 MG IV (22:20)
--- NOTE | 2024-06-21 00:35 | PC.NURSE ---
Pt is poor historian, no paperwork on chart. Completed admission to best of ability.
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
[2024-06-21 04:00] VITALS: BP 156/95; PULSE 74; RESP 20; TEMP 36.8; O2SAT 100; BMI 34.4
[2024-06-21 04:27] LABS: Basophils % 0.5 % (0.1-2.0); Eosinophils # 0.4 K/mm3 (0.0-0.4); Eosinophils % 6.5 % (0.1-12.0); Lymphocytes # 1.2 K/mm3 (0.7-4.5); Lymphocytes % 18.2 % (10-50); Mean Corpuscular Hemoglobin 28.9 pg (27.0-31.2); Mean Corpuscular Volume 90.4 fl (80-94); Monocytes # 0.5 K/mm3 (0.1-1.0); Monocytes % 8.4 % (1.7-9.3); Neutrophils # 4.2 K/mm3 (1.8-7.8); Neutrophils % 66.1 % (37.0-80.0); Platelet Count 185 K/mm3 (142-424); Red Cell Distribution Width 13.2 % (11.5-17.5)
[2024-06-21 04:33] LABS: Hematocrit 38.4 % (42.0-52.0); Hemoglobin 12.3 g/dL (14.1-18.0); Mean Platelet Volume 10.7 fl (7.4-10.4); Red Blood Count 4.25 M/mm3 (4.60-6.20); White Blood Count 6.3 K/mm3 (4.8-10.8)
[2024-06-21 04:39] LABS: Anion Gap 11.8 mEq/L (5-15); Blood Urea Nitrogen 16 mg/dl (9-20); Calcium 8.4 mg/dl (8.4-10.2); Carbon Dioxide 28 mmol/L (22.0-30.0); Chloride 105 mmol/L (98-107); Creatinine Clearance Estimated 137 mL/min (50-200); Estimated Glomerular Filt Rate 99 ml/min (>60); GFR (African American) 120 ML/MIN (>60); Glucose 72 mg/dl (74-100); Magnesium 1.8 mg/dl (1.6-2.3); Potassium 3.8 mmoL/L (3.5-5.1); Sodium 141 mmol/L (136-145)
--- NOTE | 2024-06-21 06:43 | PC.NURSE ---
Pt. was admitted overnight from the ED. Pt. is a resident of [facility]. [facility] was shut down yesterday. Pt. is a francois of [place]. Pt. is alert and orientated x 3. Pt. is a very poor historian. Per the ED note, patient was sent in for evaluation after a fall. Pt. does not know if he fell and there was no staff of [facility] that could give more information. Pt. does have a UTI. IV antibiotics given overnight. Case management is involved as pt will need new placement. Pt. slept well. VSS. Personal items and call turner in reach.
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
[2024-06-21 07:56] VITALS: BP 151/91; PULSE 90; RESP 18; TEMP 36.9; O2SAT 100
== END 2024-06-21 13:59 | disposition home or self-care (01) ==
LOC: ER 19:28 → 2ND 20:06
PROVIDERS: Nurse Practitioner Family; Physician Assistant; Admitting Provider Internal Medicine Adolescent Medicine; Emergency Provider Emergency Medicine; PCP Nurse Practitioner Acute Care; Visit Provider Internal Medicine Adolescent Medicine
DX: N39.0 Urinary tract infection, site not specified (principal); Z59.00 Homelessness unspecified; B96.4 Proteus (mirabilis) (morganii) as the cause of diseases classified elsewhere; R31.9 Hematuria, unspecified; I10 Essential (primary) hypertension; T76.01XA Adult neglect or abandonment, suspected, initial encounter; M25.559 Pain in unspecified hip; E66.9 Obesity, unspecified; W19.XXXA Unspecified fall, initial encounter; Z68.34 Body mass index [BMI] 34.0-34.9, adult; Z16.29 Resistance to other single specified antibiotic
CPT/HCPCS: 70450; 72125; 72128; 72131; 72192; 80048; 80053; 81001; 83735; 85025; 85610; 87086; 87088; 87186; 99285; G0378; J0131; J1885; J1956; J2405